=== PATIENT | male | born 1990 | race Caucasian/White ===

== ENCOUNTER → 2016-07-11 | Outpatient (CLI) | payer OTHER ==
[2016-07-11 10:00] LABS: BASO % 0.4 % (0.0-1.0); EOS # 0.2 K/mm3 (0.0-0.50); EOS % 6.4 % (0.0-3.0); LARGE UNSTAINED CELL # 0.1 K/mm3 (0.0-0.4); LARGE UNSTAINED CELL % 3.2 % (0.0-4.0); LYMPH # 1.5 K/mm3 (1.5-6.5); LYMPH % 35.2 % (24.0-44.0); MEAN CORPUSCULAR HGB CONC 34.5 g/dl (32.0-36.5); MEAN CORPUSCULAR VOLUME 87.1 fl (80.0-96.0); MONO # 0.3 K/mm3 (0.0-0.8); MONO % 6.7 % (0.0-5.0); NEUTROPHILS # 1.8 K/mm3 (1.8-7.7); NEUTROPHILS % 48.1 % (36.0-66.0); PLATELET COUNT, AUTOMATED 215 k/mm3 (150-450); RED CELL DISTRIBUTION WIDTH 12.5 % (11.5-14.5); WHITE BLOOD COUNT 3.8 K/mm3 (4.0-10.0)
[2016-07-11 10:33] LABS: ALBUMIN 3.9 GM/DL (3.2-5.2); ALBUMIN/GLOBULIN RATIO 1.39 (1.00-1.93); ALKALINE PHOSPHATASE 54 U/L (45-117); ALT/SGPT 40 U/L (12-78); ANION GAP 9 MEQ/L (8-16); AST/SGOT 19 U/L (15-37); BILIRUBIN,TOTAL 0.5 MG/DL (0.2-1.0); BLOOD UREA NITROGEN 10 MG/DL (7-18); CALCIUM LEVEL 8.8 MG/DL (8.5-10.1); CARBON DIOXIDE LEVEL 26 MEQ/L (21-32); CHLORIDE LEVEL 106 MEQ/L (98-107); CREATININE FOR GFR 0.75 MG/DL (0.70-1.30); GLOMERULAR FILTRATION RATE > 60.0 (>60); GLUCOSE, FASTING 91 MG/DL (70-105); POTASSIUM SERUM 4.2 MEQ/L (3.5-5.1); SODIUM LEVEL 141 MEQ/L (136-145); TOTAL PROTEIN 6.7 GM/DL (6.4-8.2)
== END ==
LOC: M LAB 09:10
PROVIDERS: ATTEND Nurse Practitioner Family
DX: Z02.2 Encounter for examination for admission to residential institution (principal)

== ENCOUNTER → 2016-08-03 | Outpatient (CLI) | payer OTHER | LOC: M LAB 11:44 | PROVIDERS: ATTEND Nurse Practitioner Family | DX: E78.00 Pure hypercholesterolemia, unspecified (principal) ==

== ENCOUNTER 2016-08-22 11:48 | Emergency (ER) | payer MEDICAID, OTHER, SELFPAY ==
[~2016-08-22] VITALS: Ht 185.4 cm; Wt 118.8 kg
[2016-08-22] MEDS ORDERED: NS 1,000 ML IV ONE (12:00)
[2016-08-22] MEDS ORDERED: no meds (12:08)
[2016-08-22 12:25] LABS: MEAN CORPUSCULAR HEMOGLOBIN 30.9 pg (27.0-33.0); MEAN CORPUSCULAR HGB CONC 34.2 g/dl (32.0-36.5); MEAN CORPUSCULAR VOLUME 90.1 fl (80.0-96.0); RED CELL DISTRIBUTION WIDTH 12.9 % (11.5-14.5); WHITE BLOOD COUNT 4.8 K/mm3 (4.0-10.0)
[2016-08-22 13:16] LABS: ALBUMIN 4.2 GM/DL (3.2-5.2); ALBUMIN/GLOBULIN RATIO 1.45 (1.00-1.93); ALKALINE PHOSPHATASE 61 U/L (45-117); ALT/SGPT 58 U/L (12-78); ANION GAP 7 MEQ/L (8-16); AST/SGOT 25 U/L (15-37); BILIRUBIN,DIRECT 0.1 MG/DL (0.0-0.2); BILIRUBIN,TOTAL 0.4 MG/DL (0.2-1.0); BLOOD UREA NITROGEN 12 MG/DL (7-18); CALCIUM LEVEL 9.5 MG/DL (8.5-10.1); CARBON DIOXIDE LEVEL 27 MEQ/L (21-32); CHLORIDE LEVEL 105 MEQ/L (98-107); CREATININE FOR GFR 0.84 MG/DL (0.70-1.30); GLOMERULAR FILTRATION RATE > 60.0 (>60); GLUCOSE, FASTING 95 MG/DL (70-105); POTASSIUM SERUM 4.5 MEQ/L (3.5-5.1); SODIUM LEVEL 139 MEQ/L (136-145); TOTAL PROTEIN 7.1 GM/DL (6.4-8.2)
[2016-08-22 13:29] LABS: METHADONE URINE NEGATIVE (NEGATIVE)
[2016-08-22] MEDS ORDERED: BUSP1TAB PO (13:52)
[2016-08-22] MEDS ORDERED: BACT2CRE TOP (13:52)
[2016-08-22 14:03] LABS: FREE T4 1.11 NG/DL (0.76-1.46)
[2016-08-22 14:16] VITALS: BP 153/85
[2016-08-29] MEDS ORDERED: BUSP1TAB PO (10:43)
== END 2016-08-22 14:20 | disposition home or self-care (01) ==
LOC: M ED 13:28
DX: I10 Essential (primary) hypertension (principal); F41.0 Panic disorder [episodic paroxysmal anxiety]; B20 Human immunodeficiency virus [HIV] disease; F17.210 Nicotine dependence, cigarettes, uncomplicated
CPT/HCPCS: 36415; 80048; 80076; 80306; 82550; 84439; 84443; 85027; 87899; 99283; G0480

== ENCOUNTER → 2016-09-21 | Outpatient (CLI) | payer MEDICAID, OTHER ==
[~2016-09-21] MED LIST: BACT2CRE TOP; BUSP1TAB PO; no meds
[2016-09-21 13:39] LABS: THYROXINE (T4) 8.7 UG/DL (4.5-12.0)
== END ==
LOC: M LAB 12:50
PROVIDERS: ATTEND Internal Medicine Cardiovascular Disease
DX: E05.90 Thyrotoxicosis, unspecified without thyrotoxic crisis or storm (principal)

== ENCOUNTER 2017-12-27 15:59 | Emergency (ER) | payer MEDICAID, SELFPAY, OTHER ==
[2017-12-27] MEDS: ONDANSETRON 4 MG ORAL DISINTEGRATING TAB (Q0162 PER 1MG) PO ×2 (17:09)
== END 2017-12-27 17:30 | disposition home or self-care (01) ==
LOC: M ED 15:59
DX: R11.2 Nausea with vomiting, unspecified (principal); I10 Essential (primary) hypertension; F41.9 Anxiety disorder, unspecified; F17.200 Nicotine dependence, unspecified, uncomplicated
CPT/HCPCS: Q0162

== ENCOUNTER 2018-08-16 21:26 | Emergency (ER) | payer MEDICAID, SELFPAY ==
[~2018-08-16] VITALS: Ht 185.4 cm; Wt 102.3 kg
[~2018-08-16 21:26] MED LIST changes: +ZOFR4TAB14 PO
[2018-08-16 22:38] LABS: BASO % 0.3 % (0.0-1.0); EOS # 0.2 10^3/uL (0.0-0.50); EOS % 2.3 % (0.0-3.0); HEMOGLOBIN 13.8 g/dl (13.5-17.5); LYMPH # 1.9 10^3/uL (1.5-6.5); LYMPH % 26.8 % (24.0-44.0); MEAN CORPUSCULAR HEMOGLOBIN 30.3 pg (27.0-33.0); MEAN CORPUSCULAR HGB CONC 34.5 g/dl (32.0-36.5); MEAN CORPUSCULAR VOLUME 87.9 fl (80.0-96.0); MONO # 0.5 10^3/uL (0.0-0.8); MONO % 6.4 % (0.0-5.0); NEUTROPHILS # 4.5 10^3/uL (1.8-7.7); NEUTROPHILS % 63.6 % (36.0-66.0); PLATELET COUNT, AUTOMATED 240 10^3/uL (150-450); RED BLOOD COUNT 4.55 10^6/uL (4.30-6.10)
[2018-08-16] MEDS ORDERED: **hydrALAZINE HCL** 25 MG TAB PO ONE (23:00)
[2018-08-16 23:03] VITALS: BP 130/87
--- NOTE | 2018-08-16 23:24 | REP ---
Clinical: Acute chest pain . Comparison: None . Technique: PA and lateral. Findings: The mediastinum and cardiac silhouette are normal. The lung scott are clear and without acute consolidation, effusion, or pneumothorax. The skeletal structures are intact and normal. Impression: 1. No acute cardiopulmonary process. Electronically Signed by Leonard Cisneros MD 08/16/2018 11:16 P
[2018-08-16 23:36] LABS: ALBUMIN 3.5 GM/DL (3.2-5.2); ALT/SGPT 44 U/L (12-78); BILIRUBIN,DIRECT < 0.1 MG/DL (0.0-0.2); BILIRUBIN,TOTAL 0.2 MG/DL (0.2-1.0); BLOOD UREA NITROGEN 8 MG/DL (7-18); CALCIUM LEVEL 8.4 MG/DL (8.5-10.1); CARBON DIOXIDE LEVEL 26 MEQ/L (21-32); CHLORIDE LEVEL 111 MEQ/L (98-107); CPK CREATINE PHOSPHOKINASE 116 U/L (39-308); CREATININE FOR GFR 0.88 MG/DL (0.70-1.30); GLOMERULAR FILTRATION RATE > 60.0 (>60); GLUCOSE, FASTING 80 MG/DL (70-100); MB/CK RELATIVE INDEX 0.95 (< OR =4); POTASSIUM SERUM 4.1 MEQ/L (3.5-5.1); SODIUM LEVEL 142 MEQ/L (136-145); THYROID STIMULATING HORMONE 0.264 uIU/ML (0.358-3.740); TOTAL PROTEIN 6.5 GM/DL (6.4-8.2); TROPONIN I < 0.02 NG/ML (< 0.10)
[2018-08-16] MEDS ORDERED: LISI-542 PO (23:45)
[2018-08-17 00:30] VITALS: BP 145/89
[2018-08-17 02:04] LABS: FREE T4 1.11 NG/DL (0.76-1.46)
--- NOTE | 2018-08-17 22:01 | ECGEPIP ---
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
== END 2018-08-17 00:40 | disposition home or self-care (01) ==
LOC: M ED 21:26
DX: I10 Essential (primary) hypertension (principal); I45.19 Other right bundle-branch block; I49.9 Cardiac arrhythmia, unspecified; F41.9 Anxiety disorder, unspecified; F32.9 Major depressive disorder, single episode, unspecified; Z72.0 Tobacco use; F19.11 Other psychoactive substance abuse, in remission

== ENCOUNTER → 2018-08-31 | Outpatient (REF) | payer MEDICAID, OTHER ==
[~2018-08-31] MED LIST changes: +LISI-542 PO
[2018-08-31 12:07] LABS: BASO % 0.4 % (0.0-1.0); EOS # 0.3 10^3/uL (0.0-0.50); EOS % 3.9 % (0.0-3.0); HEMATOCRIT 41.6 % (42.0-52.0); HEMOGLOBIN 14.1 g/dl (13.5-17.5); MEAN CORPUSCULAR HGB CONC 33.9 g/dl (32.0-36.5); MEAN CORPUSCULAR VOLUME 88.5 fl (80.0-96.0); MONO # 0.6 10^3/uL (0.0-0.8); MONO % 8.6 % (0.0-5.0); NEUTROPHILS # 4.2 10^3/uL (1.8-7.7); NEUTROPHILS % 58.5 % (36.0-66.0); PLATELET COUNT, AUTOMATED 246 10^3/uL (150-450); WHITE BLOOD COUNT 7.2 10^3/uL (4.0-10.0)
[2018-08-31 12:34] LABS: ALT/SGPT 82 U/L (12-78); BILIRUBIN,TOTAL 0.3 MG/DL (0.2-1.0); BLOOD UREA NITROGEN 14 MG/DL (7-18); CALCIUM LEVEL 9.4 MG/DL (8.5-10.1); CARBON DIOXIDE LEVEL 28 MEQ/L (21-32); CHLORIDE LEVEL 105 MEQ/L (98-107); CHOLESTEROL LEVEL 165 MG/DL (<200); CHOLESTEROL RISK RATIO 3.173 (<5); CREATININE FOR GFR 0.83 MG/DL (0.70-1.30); FREE T4 0.92 NG/DL (0.76-1.46); GLOMERULAR FILTRATION RATE > 60.0 (>60); GLUCOSE, FASTING 80 MG/DL (70-100); HDL CHOLESTEROL 52 MG/DL (>40); LDL CHOLESTEROL 90 MG/DL (<100); NON-HDL-C 113 MG/DL; POTASSIUM SERUM 4.4 MEQ/L (3.5-5.1); SODIUM LEVEL 139 MEQ/L (136-145); THYROID STIMULATING HORMONE 0.414 uIU/ML (0.358-3.740); TOTAL PROTEIN 6.9 GM/DL (6.4-8.2); TRIGLYCERIDES LEVEL 116 MG/DL (<150)
[2018-08-31 13:37] LABS: HEMOGLOBIN A1c 5.7 %
== END ==
LOC: M SFHCPLAZ 10:02
PROVIDERS: ATTEND Nurse Practitioner Family
DX: I10 Essential (primary) hypertension (principal); Z13.228 Encounter for screening for other metabolic disorders; E78.5 Hyperlipidemia, unspecified

== ENCOUNTER 2019-10-08 23:57 | Emergency (ER) | payer MEDICAID ==
[~2019-10-08] VITALS: Ht 185.4 cm; Wt 106.0 kg
[2019-10-09 00:16] VITALS: BP 154/81
== END 2019-10-09 01:17 | disposition left against medical advice (07) ==
LOC: M ED 23:57
DX: Z53.21 Procedure and treatment not carried out due to patient leaving prior to being seen by health care provider (principal)

== ENCOUNTER → 2020-03-21 | Outpatient (CLI) | payer MEDICAID ==
[2020-03-21 11:19] LABS: HEMATOCRIT 39.6 % (42.0-52.0); HEMOGLOBIN 12.7 g/dl (13.5-17.5); MEAN CORPUSCULAR HEMOGLOBIN 29.1 pg (27.0-33.0); MEAN CORPUSCULAR HGB CONC 32.1 g/dl (32.0-36.5); MEAN CORPUSCULAR VOLUME 90.8 fl (80.0-96.0); PLATELET COUNT, AUTOMATED 236 10^3/uL (150-450); RED BLOOD COUNT 4.36 10^6/uL (4.30-6.10); WHITE BLOOD COUNT 5.6 10^3/uL (4.0-10.0)
[2020-03-21 12:16] LABS: ALBUMIN 3.7 GM/DL (3.2-5.2); ALT/SGPT 103 U/L (12-78); BILIRUBIN,TOTAL 0.3 MG/DL (0.2-1.0); BLOOD UREA NITROGEN 12 MG/DL (7-18); CALCIUM LEVEL 9.6 MG/DL (8.5-10.1); CARBON DIOXIDE LEVEL 30 MEQ/L (21-32); CHLORIDE LEVEL 105 MEQ/L (98-107); GLOMERULAR FILTRATION RATE > 60.0 (>60); GLUCOSE, FASTING 96 MG/DL (70-100); HEPATITIS B SURFACE ANTIGEN NEGATIVE (NEGATIVE); POTASSIUM SERUM 4.5 MEQ/L (3.5-5.1); SODIUM LEVEL 140 MEQ/L (136-145); TOTAL PROTEIN 6.9 GM/DL (6.4-8.2)
[2020-03-21 12:32] LABS: HEPATITIS C VIRUS ABY INDEX 0.1 INDEX (<0.8); HIV 1&2 SCREEN CENTAUR NEGATIVE (NEGATIVE)
--- NOTE | 2020-03-21 19:56 | ECGEPIP ---
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
== END ==
LOC: M LAB 10:20
PROVIDERS: ATTEND Family Medicine
DX: F11.20 Opioid dependence, uncomplicated (principal)

== ENCOUNTER 2020-05-05 11:38 | Emergency (ER) | payer MEDICAID ==
[~2020-05-05] VITALS: Ht 185.4 cm; Wt 163.8 kg
[2020-05-05] MEDS ORDERED: CLON0.2T (11:51)
[2020-05-05] MEDS ORDERED: BUSP15TA47 (11:51)
[2020-05-05] MEDS ORDERED: HYDR50TA70 (11:51)
[2020-05-05] MEDS ORDERED: METH10CO PO (11:51)
[2020-05-05] MEDS ORDERED: OMEP-218 (11:51)
--- NOTE | 2020-05-05 12:41 | REP ---
INDICATION: CHEST PAIN COMPARISON: 08/16/2018 TECHNIQUE: PA and lateral. FINDINGS: The mediastinum and cardiac silhouette are normal. The lung scott are clear and without acute consolidation, effusion, or pneumothorax. The skeletal structures are intact and normal. IMPRESSION: No acute cardiopulmonary process. <Electronically signed by Leonard Cisneros > 05/05/20 [id number]
[2020-05-05 12:48] LABS: BASO % 0.5 % (0.0-1.0); EOS # 0.2 10^3/uL (0.0-0.5); EOS % 2.9 % (0.0-3.0); HEMATOCRIT 40.9 % (42.0-52.0); HEMOGLOBIN 13.3 g/dl (13.5-17.5); LYMPH % 34.4 % (24.0-44.0); MEAN CORPUSCULAR HEMOGLOBIN 28.4 pg (27.0-33.0); MEAN CORPUSCULAR HGB CONC 32.5 g/dl (32.0-36.5); MEAN CORPUSCULAR VOLUME 87.2 fl (80.0-96.0); MONO # 0.6 10^3/uL (0.0-0.8); MONO % 10.2 % (0.0-5.0); NEUTROPHILS % 51.7 % (36.0-66.0); PLATELET COUNT, AUTOMATED 240 10^3/uL (150-450); RED BLOOD COUNT 4.69 10^6/uL (4.30-6.10); WHITE BLOOD COUNT 5.8 10^3/uL (4.0-10.0)
[2020-05-05 13:14] LABS: ALBUMIN 3.7 GM/DL (3.2-5.2); ALT/SGPT 223 U/L (12-78); BILIRUBIN,DIRECT < 0.1 MG/DL (0.0-0.2); BILIRUBIN,TOTAL 0.3 MG/DL (0.2-1.0); BLOOD UREA NITROGEN 17 MG/DL (7-18); CALCIUM LEVEL 8.8 MG/DL (8.5-10.1); CARBON DIOXIDE LEVEL 29 MEQ/L (21-32); CHLORIDE LEVEL 105 MEQ/L (98-107); CK-MB VALUE MASS 8.6 NG/ML (<3.6); CPK CREATINE PHOSPHOKINASE 552 U/L (39-308); CREATININE FOR GFR 0.84 MG/DL (0.70-1.30); GLOMERULAR FILTRATION RATE > 60.0 (>60); GLUCOSE, FASTING 82 MG/DL (70-100); MB/CK RELATIVE INDEX 1.56 (< OR =4); NT-PRO BNP 53 PG/ML (<125); POTASSIUM SERUM 4.7 MEQ/L (3.5-5.1); SODIUM LEVEL 139 MEQ/L (136-145); TOTAL PROTEIN 7.2 GM/DL (6.4-8.2); TROPONIN I < 0.02 NG/ML (< 0.10)
[2020-05-05] MEDS ORDERED: ISOVUE-370 76% 100ML VIAL As Ordered ONE (13:25)
--- NOTE | 2020-05-05 13:57 | REP ---
INDICATION: SOB; elevated dimer COMPARISON: None. TECHNIQUE: Axial contrast enhanced images from the thoracic inlet to the upper abdomen using pulmonary embolus technique with multiplanar re-formations. 75 ml Isovue 370 intravenous contrast material administered without complication. This CT examination was performed using the following dose reduction techniques: Automated exposure control, adjustment of mA and/or kv according to the patient's size, and use of iterative reconstruction technique. FINDINGS: Suboptimal enhancement of the pulmonary vasculature may be secondary to technical factors related to continued respiratory motion during image acquisition. Examination is further limited by respiratory motion artifact. The pulmonary vasculature demonstrates no obvious pulmonary embolus. Thoracic aorta is normal and without aneurysm or dissection. Heart and pericardium appear normal. Lung scott demonstrate increased interstitial markings which may reflect chronic reactive airway disease or viral pneumonia. No focal consolidation. No effusion. No pneumothorax. No significant adenopathy. IMPRESSION: 1. Limited examination likely related to continued respiratory motion during image acquisition. No obvious pulmonary embolus appreciated. 2. Reactive airway disease and or mild viral pneumonia pattern cannot be excluded. Clinical correlation is recommended. No focal consolidation or effusion. <Electronically signed by Leonard Cisneros > 05/05/20 1558
[2020-05-05] MEDS ORDERED: NS 1,000 ML IV ONE (14:00)
[2020-05-05 15:06] VITALS: BP 136/78
--- NOTE | 2020-05-06 12:22 | ECGEPIP ---
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
== END 2020-05-05 15:15 | disposition home or self-care (01) ==
LOC: M ED 11:38
DX: R60.0 Localized edema (principal); I10 Essential (primary) hypertension; Z79.899 Other long term (current) drug therapy; Z79.891 Long term (current) use of opiate analgesic; F17.210 Nicotine dependence, cigarettes, uncomplicated
CPT/HCPCS: 36415; 71046; 71275; 80048; 80076; 81001; 82550; 82553; 83880; 85025; 85379; 93005; 96360; 99284; Q9967

== ENCOUNTER 2020-10-26 07:01 | Emergency (ER) | payer OTHER ==
[~2020-10-26] VITALS: Ht 185.4 cm; Wt 165.4 kg
[~2020-10-26 07:01] MED LIST changes: +BUSP15TA47; +CLON0.2T; +HYDR50TA70; -LISI-542 PO; +LISI-898 PO; +METH10CO PO; +OMEP-218
[2020-10-26 07:02] VITALS: BP 143/81
[2020-10-26] MEDS ORDERED: CLON0.3T (07:22)
== END 2020-10-26 07:46 | disposition left against medical advice (07) ==
LOC: M ED 07:01
DX: Z53.21 Procedure and treatment not carried out due to patient leaving prior to being seen by health care provider (principal)

== ENCOUNTER 2021-03-15 20:26 | Emergency (ER) | payer OTHER ==
[~2021-03-15 20:26] MED LIST changes: +CLON0.3T
--- OUTSIDE RECORDS SUMMARY | 2021-03-15 20:30 | CCD ---
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 Name Role Phone TONTARSKI, G VICENTE PA Unavailable Unavailable TONTARSKI, G VICENTE PA Unavailable Unavailable TONTARSKI, G VICENTE PA Unavailable Unavailable TONTARSKI, G VICENTE PA Unavailable Unavailable TONTARSKI, G VICENTE PA Unavailable Unavailable TONTARSKI, G VICENTE PA Unavailable Unavailable TONTARSKI, G VICENTE PA Unavailable Unavailable TONTARSKI, G VICENTE PA Unavailable Unavailable TONTARSKI, G VICENTE PA Unavailable Unavailable TONTARSKI, G VICENTE PA Unavailable Unavailable TONTARSKI, G VICENTE PA Unavailable Unavailable TONTARSKI, G VICENTE PA Unavailable Unavailable TONTARSKI, G VICENTE PA Unavailable Unavailable TONTARSKI, G VICENTE PA Unavailable Unavailable TONTARSKI, G VICENTE PA Unavailable Unavailable TONTARSKI, G VICENTE PA Unavailable Unavailable TONTARSKI, G VICENTE PA Unavailable Unavailable TONTARSKI, G VICENTE PA Unavailable Unavailable TONTARSKI, G VICENTE PA Unavailable Unavailable TONTARSKI, G VICENTE PA Unavailable Unavailable TONTARSKI, G VICENTE PA Unavailable Unavailable TONTARSKI, G VICENTE PA Unavailable Unavailable TONTARSKI, G VIECNTE PA Unavailable Unavailable TONTARSKI, G VICENTE PA Unavailable Unavailable TONTARSKI, G VICENTE PA Unavailable Unavailable TONTARSKI, G VICENTE PA Unavailable Unavailable TONTARSKI, G VICENTE PA Unavailable Unavailable TONTARSKI, G VICENTE PA Unavailable Unavailable TONTARSKI, G VICENTE PA Unavailable Unavailable TONTARSKI, G VICENTE PA Unavailable Unavailable TONTARSKI, G VICENTE PA Unavailable Unavailable TONTARSKI, G VICENTE PA Unavailable Unavailable TONTARSKI, G VICENTE PA Unavailable Unavailable TONTARSKI, G VICENTE PA Unavailable Unavailable TONTARSKI, G VICENTE PA Unavailable Unavailable TONTARSKI, G VICENTE PA Unavailable Unavailable TONTARSKI, G VICENTE PA Unavailable Unavailable TONTARSKI, G VICENTE PA Unavailable Unavailable TONTARSKI, G VICENTE PA Unavailable Unavailable TONTARSKI, G VICENTE PA Unavailable Unavailable TONTARSKI, G VICENTE PA Unavailable Unavailable TONTARSKI, G VICENTE PA Unavailable Unavailable TONTARSKI, G VICENTE PA Unavailable Unavailable TONTARSKI, G VICENTE PA Unavailable Unavailable TONTARSKI, G VICENTE PA Unavailable Unavailable TONTARSKI, G VICENTE PA Unavailable Unavailable TONTARSKI, G VICENTE PA Unavailable Unavailable Re-disclosure Warning The records that you are about to access may contain information from federally-assisted alcohol or drug abuse programs. If such information is present, then the following federally mandated warning applies: This information has been disclosed to you from records protected by federal confidentiality rules (42 CFR part 2). The federal rules prohibit you from making any further disclosure of this information unless further disclosure is expressly permitted by the written consent of the person to whom it pertains or as otherwise permitted by 42 CFR part 2. A general authorization for the release of medical or other information is NOT sufficient for this purpose. The Federal rules restrict any use of the information to criminally investigate or prosecute any alcohol or drug abuse patient.The records that you are about to access may contain highly sensitive health information, the redisclosure of which is protected by Article 27-F of the [facility] Public Health law. If you continue you may have access to information: Regarding HIV / AIDS; Provided by facilities licensed or operated by the [facility] Office of Mental Health; or Provided by the [facility] Office for People With Developmental Disabilities. If such information is present, then the following [facility] mandated warning applies: This information has been disclosed to you from confidential records which are protected by state law. State law prohibits you from making any further disclosure of this information without the specific written consent of the person to whom it pertains, or as otherwise permitted by law. Any unauthorized further disclosure in violation of state law may result in a fine or skilled nursing sentence or both. A general authorization for the release of medical or other information is NOT sufficient authorization for further disc losure. Encounters Encounter Providers Location Date Indications Data Source(s ) Outpatient Attender: VICENTE Cavazosin terrell 08/01/2020 12:30:00 PM EDT [facility] (Clemente Garcia MD) Medications No Information Insurance Providers Payer name Policy type / Coverage type Policy ID Covered green party ID Covered green party's relationship to joseph Policy Joseph Plan Information [facility] [id number] SP [id number] [facility] [id number] SP [id number] [facility] [id number] SP [id number] MEDICAID [id number] S [id number] [place] [id number] SP [id number] Self Pay P UNAVAILABLE S UNAVAILA BLE MEDICAID [id number] SP [id number] ANSI-Not a Secondary Insurance [id number] ANSI-Not a Secondary Insurance [id number] SELF PAY ONLY - SP1 SP SELF PAY ONLY [id number] SP [id number] [employer] [id number] SP [id number] [facility] [id number] SP [id number] [facility] [id number] S [id number] SELF PAY UNAVAILABLE UNAVAILA BLE [facility] [id number] SP [id number] [facility] P [id number] S [id number] [employer] [id number] MO2 [id number] MEDICAID [id number] SP [id number] [facility] [id number] MO2 [id number] [facility] [id number] [facility] [id number] Problems, Conditions, and Diagnoses No Information Surgeries/Procedures No Information Results No Information Social History No Information
[2021-03-15 20:59] VITALS: BP 166/75
--- OUTSIDE RECORDS SUMMARY | 2021-03-15 21:59 | CCD ---
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 If you continue you may have access to information: Regarding HIV / AIDS; Provided by facilities licensed or operated by the [facility] Office of Mental Health; or Provided by the [facility] Office for People With Developmental Disabilities. If such information is present, then the following [facility] mandated warning applies: This information has [...] law may result in a fine or shelter sentence or both. A general authorization for the release of medical or other information is NOT sufficient authorization for further disc losure. Encounters Encounter Providers Location Date Indications Data Source(s ) Outpatient Attender: VICENTE Cavazosin terrell 08/01/2020 12:30:00 PM EDT [facility] (Clemente Garcia MD) Medications No Information Insurance Providers Payer name Policy type / Coverage type Policy ID Covered constitution party ID Covered constitution party's relationship to joseph Policy Joseph Plan Information [facility] [id number] SP [id number] [facility] [id number] SP [id number] [facility] [id number] SP [id number] MEDICAID M [id number] S [id number] [facility] [id number] SP [id number] Self Pay P UNAVAILABLE S UNAVAILA BLE MEDICAID [id number] SP [id number] ANSI-Not a Secondary Insurance [id number] ANSI-Not a Secondary Insurance [id number] SELF PAY ONLY - SP1 SP SELF PAY ONLY [id number] SP [id number] [employer] [id number] SP [id number] [facility] [id number] SP [id number] [facility] O [id number] S [id number] SELF PAY UNAVAILABLE UNAVAILA BLE [facility] [id number] SP [id number] [facility] P [id number] S [id number] [employer] [id number] MO2 [id number] MEDICAID [id number] SP [id number] [facility] [id number] MO2 [id number] [facility] [id number] [facility] [id number] Problems, Conditions, and Diagnoses No Information Surgeries/Procedures No Information Results No Information Social History No Information
== END 2021-03-15 21:30 | disposition home or self-care (01) ==
LOC: M ED 20:26
DX: T40.1X1A Poisoning by heroin, accidental (unintentional), initial encounter (principal); F19.10 Other psychoactive substance abuse, uncomplicated; I10 Essential (primary) hypertension; F17.200 Nicotine dependence, unspecified, uncomplicated; Z79.899 Other long term (current) drug therapy

== ENCOUNTER 2021-07-28 17:31 | Emergency (ER) | payer OTHER ==
[~2021-07-28] VITALS: Ht 185.4 cm; Wt 116.9 kg
[~2021-07-28 17:31] MED LIST changes: -LISI-898 PO; +LISI5TAB11 PO; +OMEP-173; -OMEP-218
[2021-07-28 17:32] VITALS: BP 169/97
[2021-07-28] MEDS ORDERED: HOME MED LIST COMPLETE! XX SCH (18:00)
[2021-07-28] MEDS ORDERED: LISI10TA22 PO (18:12)
[2021-07-28 18:14] VITALS: BP 169/97
== END 2021-07-28 18:24 | disposition home or self-care (01) ==
LOC: M ED 17:31
DX: F19.10 Other psychoactive substance abuse, uncomplicated (principal); I10 Essential (primary) hypertension; F41.8 Other specified anxiety disorders; F43.10 Post-traumatic stress disorder, unspecified; F17.200 Nicotine dependence, unspecified, uncomplicated; F11.10 Opioid abuse, uncomplicated; Z79.811 Long term (current) use of aromatase inhibitors

== ENCOUNTER 2022-02-18 16:15 | Emergency (ER) | payer OTHER ==
[~2022-02-18] VITALS: Ht 185.4 cm; Wt 95.9 kg
[2022-02-18 16:15] VITALS: BP 148/103
[~2022-02-18 16:15] MED LIST changes: +LISI10TA22 PO
== END 2022-02-18 18:00 | disposition left against medical advice (07) ==
LOC: M ED 16:15
DX: Z53.21 Procedure and treatment not carried out due to patient leaving prior to being seen by health care provider (principal)

== ENCOUNTER 2022-11-25 12:27 | Emergency (ER) | payer OTHER ==
[~2022-11-25] VITALS: Ht 193 cm; Wt 102.0 kg
[2022-11-25 12:36] VITALS: BP 139/88; TEMP 98.3; O2SAT 97
[2022-11-25 14:52] LABS: BASO % 0.3 % (0.0-1.0); EOS # 0.3 10^3/uL (0.0-0.5); HEMATOCRIT 40.9 % (42.0-52.0); HEMOGLOBIN 13.5 g/dl (13.5-17.5); LYMPH # 1.3 10^3/uL (1.5-5.0); LYMPH % 12.8 % (24.0-44.0); MEAN CORPUSCULAR HEMOGLOBIN 29.5 pg (27.0-33.0); MEAN CORPUSCULAR VOLUME 89.3 fl (80.0-96.0); MONO # 0.5 10^3/uL (0.0-0.8); MONO % 4.5 % (2.0-8.0); NEUTROPHILS % 79.1 % (36.0-66.0); PLATELET COUNT, AUTOMATED 227 10^3/uL (150-450); RED BLOOD COUNT 4.58 10^6/uL (4.30-6.10); WHITE BLOOD COUNT 10.1 10^3/uL (4.0-10.0)
[2022-11-25 14:55] LABS: BLOOD UREA NITROGEN 10 MG/DL (9-23); CALCIUM LEVEL 9.7 MG/DL (8.5-10.1); CARBON DIOXIDE LEVEL 28 MMOL/L (20-31); CHLORIDE LEVEL 104 MMOL/L (98-107); CREATININE FOR GFR 0.69 MG/DL (0.70-1.30); GLOMERULAR FILTRATION RATE > 60.0 (>60); GLUCOSE, FASTING 84 MG/DL (60-100); POTASSIUM SERUM 3.7 MMOL/L (3.5-5.1); SODIUM LEVEL 137 MMOL/L (136-145)
[2022-11-25 15:27] LABS: ERYTHROCYTE SEDIMENTATION RATE 35 mm/hr (0-15)
== END 2022-11-25 16:09 | disposition left against medical advice (07) ==
LOC: EDBD 12:27 → M ED 12:27
DX: Z53.21 Procedure and treatment not carried out due to patient leaving prior to being seen by health care provider (principal)

== ENCOUNTER → 2022-12-01 | Outpatient (REF) | payer OTHER ==
[2022-12-01 17:22] LABS: AMORPHOUS SEDIMENT MODERATE (NEGATIVE); APPEARANCE, URINE TURBID (CLEAR); BACTERIA, URINE AUTO 1+ (NEGATIVE); BILIRUBIN, URINE AUTO NEGATIVE (NEGATIVE); BLOOD, URINE BLOOD NEGATIVE (NEGATIVE); COLOR, URINE YELLOW (YELLOW); GLUCOSE, URINE (UA) AUTO NEGATIVE (NEGATIVE); KETONE, URINE AUTO NEGATIVE (NEGATIVE); LEUKOCYTE ESTERASE, URINE AUTO 2+ (NEGATIVE); MUCUS, URINE SMALL (NEGATIVE); NITRITE, URINE AUTO NEGATIVE (NEGATIVE); PROTEIN, URINE AUTO 1+ mg/dL (NEGATIVE); RBC, URINE AUTO 13 /HPF (0-3); SPECIFIC GRAVITY URINE AUTO 1.018 (1.002-1.035); SQUAMOUS EPITHELIAL CELL UR AU 0 /HPF (0-6); WBC, URINE AUTO TNTC /HPF (0-3)
[2022-12-01 19:13] LABS: GC DNA AMPLIFICATION POSITIVE (NEGATIVE)
== END ==
LOC: M LAB REF 16:31
PROVIDERS: ATTEND Physician Assistant
DX: Z20.2 Contact with and (suspected) exposure to infections with a predominantly sexual mode of transmission (principal)

== ENCOUNTER 2024-06-12 17:54 | Emergency (ER) | payer OTHER ==
[~2024-06-12] VITALS: Ht 185.4 cm; Wt 158.3 kg
[2024-06-12 17:57] VITALS: BP 160/100; TEMP 97.9; O2SAT 97
[2024-06-12] MEDS ORDERED: AMLO1TAB24 PO (18:05)
[2024-06-12 18:56] LABS: BASO % 0.4 % (0.0-1.0); EOS # 0.2 10^3/uL (0.0-0.5); EOS % 2.3 % (0.0-3.0); HEMATOCRIT 42.7 % (42.0-52.0); HEMOGLOBIN 14.5 g/dl (13.5-17.5); LYMPH # 2.1 10^3/uL (1.5-5.0); LYMPH % 30.2 % (24.0-44.0); MEAN CORPUSCULAR HEMOGLOBIN 29.7 pg (27.0-33.0); MEAN CORPUSCULAR VOLUME 87.3 fl (80.0-96.0); MONO # 0.6 10^3/uL (0.0-0.8); MONO % 8.5 % (2.0-8.0); NEUTROPHILS % 58.2 % (36.0-66.0); PLATELET COUNT, AUTOMATED 249 10^3/uL (150-450); RED BLOOD COUNT 4.89 10^6/uL (4.30-6.10); WHITE BLOOD COUNT 6.9 10^3/uL (4.0-10.0)
[2024-06-12 19:19] LABS: LIPASE 60 U/L (12-53)
[2024-06-12 19:21] LABS: ALBUMIN 3.9 G/DL (3.2-5.2); ALKALINE PHOSPHATASE 75 U/L (40-129); ALT/SGPT 98 U/L (7.0-40); AST/SGOT 47 U/L (<34); BILIRUBIN,DIRECT < 0.1 MG/DL (<0.4); BILIRUBIN,TOTAL 0.2 MG/DL (0.3-1.2); BLOOD UREA NITROGEN 16 MG/DL (9-23); CALCIUM LEVEL 9.6 MG/DL (8.5-10.1); CARBON DIOXIDE LEVEL 29 MMOL/L (20-31); CHLORIDE LEVEL 103 MMOL/L (98-107); CREATININE FOR GFR 0.64 MG/DL (0.70-1.30); GLOMERULAR FILTRATION RATE > 60.0 (>60); GLUCOSE, FASTING 95 MG/DL (60-100); POTASSIUM SERUM 4.4 MMOL/L (3.5-5.1); SODIUM LEVEL 141 MMOL/L (136-145); TOTAL PROTEIN 7.5 G/DL (5.7-8.2)
== END 2024-06-12 20:28 | disposition left against medical advice (07) ==
LOC: EDBD 17:54 → M ED 17:54
DX: Z53.21 Procedure and treatment not carried out due to patient leaving prior to being seen by health care provider (principal)

== ENCOUNTER → 2024-07-19 | Outpatient (CLI) | payer OTHER ==
[~2024-07-19] MED LIST changes: +AMLO1TAB24 PO
[2024-07-19 11:51] LABS: BASO % 0.5 % (0.0-1.0); EOS # 0.1 10^3/uL (0.0-0.5); EOS % 1.4 % (0.0-3.0); HEMATOCRIT 42.6 % (42.0-52.0); HEMOGLOBIN 14.4 g/dl (13.5-17.5); LYMPH # 1.4 10^3/uL (1.5-5.0); LYMPH % 23.8 % (24.0-44.0); MEAN CORPUSCULAR HEMOGLOBIN 29.7 pg (27.0-33.0); MEAN CORPUSCULAR HGB CONC 33.8 g/dl (32.0-36.5); MEAN CORPUSCULAR VOLUME 87.8 fl (80.0-96.0); MONO # 0.3 10^3/uL (0.0-0.8); MONO % 4.8 % (2.0-8.0); NEUTROPHILS # 3.9 10^3/uL (1.5-8.5); NEUTROPHILS % 69.1 % (36.0-66.0); PLATELET COUNT, AUTOMATED 258 10^3/uL (150-450); RED BLOOD COUNT 4.85 10^6/uL (4.30-6.10); WHITE BLOOD COUNT 5.7 10^3/uL (4.0-10.0)
[2024-07-19 12:27] LABS: ALBUMIN 3.9 G/DL (3.2-5.2); ALKALINE PHOSPHATASE 80 U/L (40-129); ALT/SGPT 117 U/L (7.0-40); AST/SGOT 66 U/L (<34); BILIRUBIN,TOTAL 0.3 MG/DL (0.3-1.2); BLOOD UREA NITROGEN 16 MG/DL (9-23); CALCIUM LEVEL 9.8 MG/DL (8.5-10.1); CARBON DIOXIDE LEVEL 27 MMOL/L (20-31); CHLORIDE LEVEL 107 MMOL/L (98-107); CREATININE FOR GFR 0.78 MG/DL (0.70-1.30); GLOMERULAR FILTRATION RATE > 60.0 (>60); GLUCOSE, FASTING 108 MG/DL (60-100); POTASSIUM SERUM 4.8 MMOL/L (3.5-5.1); SODIUM LEVEL 139 MMOL/L (136-145); TOTAL PROTEIN 7.6 G/DL (5.7-8.2)
[2024-07-19 12:29] LABS: HEPATITIS B SURFACE ANTIBODY NEGATIVE (POSITIVE)
[2024-07-19 12:41] LABS: HEPATITIS B SURFACE ANTIGEN NEGATIVE (NEGATIVE)
[2024-07-19 12:54] LABS: HIV 1&2 SCREEN NEGATIVE (NEGATIVE)
[2024-07-19 13:02] LABS: HEPATITIS C VIRUS ABY INDEX 0.11 INDEX (<0.8)
[2024-07-19 13:36] LABS: GC DNA AMPLIFICATION NEGATIVE (NEGATIVE)
== END ==
LOC: M LAB 10:35
PROVIDERS: ATTEND Family Medicine
DX: F11.20 Opioid dependence, uncomplicated (principal)

== ENCOUNTER 2024-09-29 20:21 | Emergency (ER) | payer OTHER ==
[~2024-09-29] VITALS: Ht 185.4 cm; Wt 151.4 kg
[2024-09-29] MEDS: PANTOPRAZOLE 40MG VIAL IV ONE (21:02)
[2024-09-29] MEDS: NS (Normal Saline) 0.9% 1,000 ML IV ONE (21:02)
[2024-09-29] MEDS: HALOPERIDOL LACTATE 5MG/ML VIAL IV ONE (21:02)
[2024-09-29 21:07] LABS: BASO # 0.1 10^3/uL (0.0-0.2); BASO % 0.4 % (0.0-1.0); EOS # 0.1 10^3/uL (0.0-0.5); EOS % 0.5 % (0.0-3.0); HEMATOCRIT 50.4 % (42.0-52.0); HEMOGLOBIN 17.5 g/dl (13.5-17.5); LYMPH # 1.9 10^3/uL (1.5-5.0); LYMPH % 13.8 % (24.0-44.0); MEAN CORPUSCULAR HEMOGLOBIN 29.5 pg (27.0-33.0); MEAN CORPUSCULAR HGB CONC 34.7 g/dl (32.0-36.5); MEAN CORPUSCULAR VOLUME 84.8 fl (80.0-96.0); MONO # 0.7 10^3/uL (0.0-0.8); MONO % 4.7 % (2.0-8.0); NEUTROPHILS # 11.3 10^3/uL (1.5-8.5); NEUTROPHILS % 80.2 % (36.0-66.0); PLATELET COUNT, AUTOMATED 285 10^3/uL (150-450); RED BLOOD COUNT 5.94 10^6/uL (4.30-6.10); WHITE BLOOD COUNT 14.1 10^3/uL (4.0-10.0)
[2024-09-29 21:21] VITALS: BP 165/76; TEMP 96.9; O2SAT 97
[2024-09-29 21:33] LABS: LIPASE 27 U/L (12-53)
[2024-09-29 21:38] LABS: ALBUMIN 4.3 G/DL (3.2-5.2); ALKALINE PHOSPHATASE 86 U/L (40-129); ALT/SGPT 96 U/L (7.0-40); AST/SGOT 49 U/L (<34); BILIRUBIN,DIRECT < 0.1 MG/DL (<0.4); BILIRUBIN,TOTAL 0.3 MG/DL (0.3-1.2); BLOOD UREA NITROGEN 13 MG/DL (9-23); CARBON DIOXIDE LEVEL 26 MMOL/L (20-31); CHLORIDE LEVEL 102 MMOL/L (98-107); GLOMERULAR FILTRATION RATE > 90.0 (>60); GLUCOSE, FASTING 118 MG/DL (60-100); POTASSIUM SERUM 4.3 MMOL/L (3.5-5.1); SODIUM LEVEL 141 MMOL/L (136-145); TOTAL PROTEIN 8.5 G/DL (5.7-8.2)
[2024-09-29 21:40] VITALS: BP 165/79
[2024-09-29] MEDS: cloNIDine 0.2 MG TAB PO ONE (21:40)
[2024-09-29] MEDS ORDERED: CLON0.2T PO (22:17)
== END 2024-09-29 22:28 | disposition home or self-care (01) ==
LOC: M ED 20:21 → EDBD 20:21 → M ED 22:28
DX: R11.2 Nausea with vomiting, unspecified (principal); E11.9 Type 2 diabetes mellitus without complications; I10 Essential (primary) hypertension; F41.9 Anxiety disorder, unspecified; F32.9 Major depressive disorder, single episode, unspecified; Z79.899 Other long term (current) drug therapy
CPT/HCPCS: 80048; 80076; 83690; 85025; 93005; 93041; 96361; 96374; 99284; J1630; J2470

== ENCOUNTER 2025-01-21 06:44 | Emergency (ER) | payer OTHER ==
[~2025-01-21] VITALS: Ht 185.4 cm; Wt 150.0 kg
[~2025-01-21 06:44] MED LIST changes: +CLON0.2T PO
[2025-01-21 07:35] LABS: BASO # 0.1 10^3/uL (0.0-0.2); BASO % 0.5 % (0.0-1.0); EOS # 0.1 10^3/uL (0.0-0.5); EOS % 1.5 % (0.0-3.0); LYMPH # 2.7 10^3/uL (1.5-5.0); LYMPH % 28.4 % (24.0-44.0); MONO # 0.4 10^3/uL (0.0-0.8); MONO % 3.8 % (2.0-8.0); NEUTROPHILS # 6.3 10^3/uL (1.5-8.5); NEUTROPHILS % 65.6 % (36.0-66.0); PLATELET COUNT, AUTOMATED 264 10^3/uL (150-450)
[2025-01-21 07:40] LABS: KETONE, URINE AUTO RFX NEGATIVE (NEGATIVE); LEUKOCYTE ESTERASE UR AUTO RFX NEGATIVE (NEGATIVE); MUCUS, URINE RFX LARGE (NEGATIVE); NITRITE, URINE AUTO RFX NEGATIVE (NEGATIVE); RBC, URINE AUTO RFX 26 /HPF (0-3); SQUAM EPITHELIAL CELL UR AURFX 0 /HPF (0-6); WBC, URINE AUTO RFX 18 /HPF (0-3)
[2025-01-21 07:52] LABS: PHENCYCLIDINE URINE NEGATIVE (NEGATIVE)
[2025-01-21 07:53] LABS: AMPHETAMINES LEVEL URINE NEGATIVE (NEGATIVE); BARBITURATES URINE NEGATIVE (NEGATIVE); BENZODIAZEPINES URINE NEGATIVE (NEGATIVE); COCAINE METABOLITE URINE NEGATIVE (NEGATIVE)
[2025-01-21 07:58] LABS: CANNABINOIDS URINE POSITIVE (NEGATIVE); METHADONE URINE POSITIVE (NEGATIVE); OPIATES URINE POSITIVE (NEGATIVE)
[2025-01-21 07:59] LABS: FREE T4 1.34 NG/DL (0.89-1.76)
[2025-01-21 08:01] LABS: ALT/SGPT 192 U/L (7.0-40); AST/SGOT 181 U/L (<34); CALCIUM LEVEL 10.4 MG/DL (8.5-10.1); CARBON DIOXIDE LEVEL 27 MMOL/L (20-31); CHLORIDE LEVEL 100 MMOL/L (98-107); CREATININE FOR GFR 1.11 MG/DL (0.70-1.30); GLOMERULAR FILTRATION RATE > 90.0 (>60); MAGNESIUM LEVEL 1.8 MG/DL (1.8-2.4); POTASSIUM SERUM 4.7 MMOL/L (3.5-5.1); SODIUM LEVEL 140 MMOL/L (136-145)
[2025-01-21 08:35] VITALS: BP 110/70; TEMP 97.6; O2SAT 97
== END 2025-01-21 08:50 | disposition home or self-care (01) ==
LOC: M ED 06:44
DX: R55 Syncope and collapse (principal); F19.10 Other psychoactive substance abuse, uncomplicated; I10 Essential (primary) hypertension; E66.9 Obesity, unspecified; F17.200 Nicotine dependence, unspecified, uncomplicated; Z79.899 Other long term (current) drug therapy

== ENCOUNTER → 2025-01-23 | Outpatient (REF) | LOC: M LAB 14:15 | PROVIDERS: ATTEND Pathology Forensic Pathology | DX: Z01.89 Encounter for other specified special examinations (principal) ==